=== PATIENT | female | born 1990 | race Two or more races ===

== ENCOUNTER 2017-09-06 07:20 | Inpatient (IN) | payer SELFPAY ==
--- NOTE | 2017-09-06 07:31 | ER Document Report ---
ED General - General Stated Complaint: POSSIBLE ACTIVE LABOR Time Seen by Provider: 09/06/17 07:30 Mode of Arrival: Wheelchair Information source: Patient Notes: 27 yr old female unknown gestational age of baby presents with concerns for labor. Pt was seen by triage nurse, unable ot understand what she is saying so YEHUDA was being obtained, I went out t othe waiting room myself, noted that patients water had broken and she was in active labor. Pt brought back to the trauma bay - HPI Onset: Just prior to arrival Onset/Duration: Sudden Quality of pain: Sharp Severity: Severe Pain Level: 5 Associated symptoms: Other Exacerbated by: Denies Relieved by: Denies Similar symptoms previously: No Recently seen / treated by doctor: No Past Medical History - Social History Smoking Status: Never Smoker Cigarette use (# per day): No Chew tobacco use (# tins/day): No Smoking Education Provided: No Family History: Reviewed & Not Pertinent Review of Systems - Review of Systems Notes: PHYSICAL EXAMINATION: GENERAL: Well-appearing, well-nourished and in significant distress HEAD: Atraumatic, normocephalic. EYES: Pupils equal round and reactive to light, extraocular movements intact, conjunctiva are normal. ENT: Nares patent, oropharynx clear without exudates. Moist mucous membranes. NECK: Normal range of motion, supple without lymphadenopathy LUNGS: Breath sounds clear to auscultation bilaterally and equal. No wheezes rales or rhonchi. HEART: Regular rate and rhythm without murmurs ABDOMEN: gravid abd Female : blood tinged fluid noted, pt began actively pushing and delivered baby Musculoskeletal: Normal range of motion, no pitting or edema. No cyanosis. NEUROLOGICAL: Cranial nerves grossly intact. Normal speech, normal gait. Normal sensory, motor exams PSYCH: Normal mood, normal affect. SKIN: Warm, Dry, normal turgor, no rashes or lesions noted. -: Yes ROS unobtainable due to patient's medical condition Course - Re-evaluation Re-evalutation: 09/06/17 07:41 Code OB was called. patient began actively delivering child, clamp was placed and cord was cut, a second clamp was then placed. Nasal and oral suction performed . initial 9 five-minute 10. Placenta was not delivered . Pt placed on monitor, fluids started, ob team took care , dr roach admits to her service Procedures - Additional Procedures vaginal delivery Time performed: 07:21 Additional Procedures: Other Notes: 09/06/17 07:46 Normal spontaneous vaginal delivery of live female infant, over intact perineum without epidural anesthesia. Suction performed. vaginal delivery blood loss is 100cc). Discharge - Discharge Clinical Impression: Vaginal delivery Condition: Stable Disposition: ADMITTED INPATIENT Admitting Provider: [facility] Admitted: Labor and Delivery
[2017-09-06] MEDS ORDERED: CEFAZOLIN 2 GM/D5W RTU 2 GM/50 ML RTUPB IV ONE (08:00)
[2017-09-06] MEDS ORDERED: NALBUPHINE HCL INJ 10 MG/1 ML AMPULE ONE (08:19)
[2017-09-06] MEDS ORDERED: CEFAZOLIN 2 GM/D5W RTU 2 GM/50 ML RTUPB IV PRN (08:31)
[2017-09-06] MEDS ORDERED: OXYTOCIN/NORMAL SALINE 20 UNIT/1,000 ML RTUINJ IV PRN (08:32)
[2017-09-06] MEDS ORDERED: PROMETHAZINE HCL 25 MG TABLET PO PRN (08:32)
[2017-09-06] MEDS ORDERED: PSEUDOEPHEDRINE HCL 30 MG TABLET PO PRN (08:32)
[2017-09-06] MEDS ORDERED: BENZOCAINE/MENTHOL AEROSOL SPRAY 56 ML TOP PRN (08:32)
[2017-09-06] MEDS ORDERED: MISOPROSTOL 0.2 MG TABLET PR PRN (08:32)
[2017-09-06] MEDS ORDERED: DIBUCAINE 1% OINTMENT 28 GM TP PRN (08:32)
[2017-09-06] MEDS ORDERED: DIPH/PERTUSS(ACELL)/TETANUS VAC/PF 0.5 ML SYR (>=10YO) IM PRN (08:32)
[2017-09-06] MEDS ORDERED: NA PHOS,M-B/NA PHOS,DI-BA (ADULT) 133 ML ENEMA PR PRN (08:32)
[2017-09-06] MEDS ORDERED: ACETAMINOPHEN WITH CODEINE #3 TABLET PO PRN ×2 (08:32)
[2017-09-06] MEDS ORDERED: MEASLES,MUMPS&RUBELLA VACC/PF 0.5 ML VIAL SUBCUT PRN (08:32)
[2017-09-06] MEDS ORDERED: GLYCERIN/WITCH HAZEL LEAF 1 EACH MED..PAD TP PRN (08:32)
[2017-09-06] MEDS ORDERED: ZOLPIDEM TARTRATE 5 MG TABLET PO PRN (08:32)
[2017-09-06] MEDS ORDERED: PROMETHAZINE HCL INJ 25 MG/1 ML VIAL IV PRN (08:32)
[2017-09-06] MEDS ORDERED: ACETAMINOPHEN 650 MG SUPP.RECT PR PRN (08:32)
[2017-09-06] MEDS ORDERED: PROMETHAZINE HCL 25 MG SUPP.RECT PR PRN (08:32)
[2017-09-06] MEDS ORDERED: MAGNESIUM HYDROXIDE SUSP 30 ML UDCUP PO PRN (08:32)
[2017-09-06] MEDS ORDERED: DIPHENHYDRAMINE HCL 25 MG CAPSULE PO PRN (08:32)
[2017-09-06] MEDS ORDERED: NALBUPHINE HCL INJ 10 MG/1 ML AMPULE INJ ONE (08:36)
[2017-09-06 09:18] LABS: ABSOLUTE MONOCYTES (AUTO) 0.4 10^3/uL (0.1-1.4); ABSOLUTE NEUT (AUTO) 14.5 10^3/uL (1.7-8.2); BASOPHILS % (AUTO) 0.2 % (0-2); HEMATOCRIT 24.8 % (36.0-47.0); HGB HCT DIFFERENCE -1.4; LYMPHOCYTES % (AUTO) 6.1 % (13-45); MEAN CORPUSCULAR HGB CONC 31.3 g/dL (32.0-36.0); MONOCYTES % (AUTO) 2.5 % (3-13); SEGMENTED NEUTROPHILS % (AUTO) 91.2 % (42-78); WHITE BLOOD COUNT 15.9 10^3/uL (4.0-10.5)
[2017-09-06 09:41] LABS: ANISOCYTOSIS 2+; HYPOCHROMASIA 1+; MICROCYTOSIS 3+; POLYCHROMASIA SLIGHT
[2017-09-06 09:43] LABS: MEAN CORPUSCULAR VOLUME 61 fl (80-97)
[2017-09-06 09:44] LABS: HEMOGLOBIN 7.8 g/dL (12.0-15.5)
--- NOTE | 2017-09-06 10:19 | Delivery Summary ---
Del Sum A-C Datetime Report Generated by CPN: 09/06/2017 10:18 DELIVERY PERSONNEL DELIVERY PERSONNEL: [id number] Delivery Doctor:: Dr Teixeira Labor and Delivery Nurse:: Janis Juan RN Nursery Nurse:: Cherelle Espinoza RN Bulldozer Mechanic/[id number] ARMOR CREWMAN: Aster Ron, ELECTROMECHANIC MATERNAL INFORMATION Delivery Anesthesia: None Medications After Delivery: Pitocin Bolus-Please Comment; Other-Please Comment Meds After Delivery Comment: cytotec 1000mcg pr Estimated Blood Loss (ml): 350 Maternal Complications: Precipitous Labor (<3hrs) Provider Comments: VFI delivered in ER during OB emergency prior to OB provider arrival. Delivery time 07. Apgars reported at 9/9. Pt arrived on floor with baby on maternal chest for NRP/skin to skin. Placenta not delivered and patient with increased ebl with atony. Placenta partially delivered easily but with continued atony and uterine exploration noted multiple pieces with good return of uterine tone and improved bleeding. FF at U and good hemostasis after repair. Repeat manual exploration of uterine revealed no evidence of retained products. Mother and baby stable upon provider leaving the room. LABOR SUMMARY No. Babies in Womb: 1 Attempted: No Labor Anesthesia: None LABOR INFORMATION Reason for Induction: Not Applicable Onset of Labor: 09/06/2017 12:01 Complete Dilatation: 09/06/2017 07:20 Oxytocin: N/A Group B Beta Strep: unknown Name of Antibiotic Given: Ancef Steroids Given: None Reason Steroids Not Administered: Not Applicable MEMBRANES Membranes Rupture Method: Spontaneous Rupture of Membranes: 09/06/2017 07:00 Length of Rupture (hr): 0.37 Amniotic Fluid Color: Moderate Meconium Amniotic Fluid Amount: Small Amniotic Fluid Odor: Normal STAGES OF LABOR Stage 1 hr: -4 Stage 1 min: -41 Stage 2 hr: 0 Stage 2 min: 2 Stage 3 hr: 0 Stage 3 min: 25 Total Time in Labor hr: -4 Total Time in Labor min: -14 VAGINAL DELIVERY Episiotomy: None Laceration #1: Perineal Laceration Extension #1: First Degree Laceration Repair: Yes Laceration Repair Note: 1st degree perineal laceration repaired in usual fahsion. Good hemostasis Sponge Count Correct: Yes Sharps Count Correct: Yes CSECTION DELIVERY Primary Indication: N/A Secondary Indication: N/A CSection Incidence: N/A Labor: N/A Elective: N/A CSection Incision: N/A BABY A INFORMATION Infant Delivery Date/Time: 09/06/2017 07:22 Method of Delivery: Vaginal Born in Route : No : N/A Forceps: N/A Vacuum Extraction: N/A Shoulder Dystocia : No PRESENTATION/POSITION BABY A Presentation: Cephalic Cephalic Presentation: Vertex Vertex Position: Occipital Posterior Breech Presentation: N/A PLACENTA INFORMATION BABY A Placenta Delivery Time : 09/06/2017 07:47 Placenta Method of Delivery: Manual Removal Placenta Status: Delivered SCORES BABY A Heart Rate 1 min: >100 bpm Resp Effort 1 min: Good Cry Reflex Irritability 1 min: Cough or Sneeze or Pulls Away Muscle Tone 1 min: Active Motion Color 1 min: Body Mosier, Extremities Blue Resuscitation Effort 1 min: Tactile Stimulation SCORE 1 MIN: 9 Heart Rate 5 min: >100 bpm Resp Effort 5 min: Good Cry Reflex Irritability 5 min: Cough or Sneeze or Pulls Away Muscle Tone 5 min: Active Motion Color 5 min: Body Mosier, Extremities Blue Resuscitation Effort 5 min: N/A SCORE 5 MIN: 9 INFANT INFORMATION BABY A Gestational Age at Delivery: unknown Outcome : Liveborn Condition : Stable Infant Sex: Female IDENTIFICATION BABY A Infant Verification Date/Time: 09/06/2017 08:08 ID Band Number: [id number] Mother's Name Verified: Yes Infant RN Verifying : B Baidy RN/T Nathaniel ELECTROMECHANIC WEIGHT/LENGTH BABY A Birthweight (gm): 4075 Weight (lb): 9 Weight (oz): 0 Length (in): 20.50 Infant Length (cm): 52.07 CORD INFORMATION BABY A No. Cord Vessels: 3 Nuchal Cord : N/A Cord Blood Taken: Yes-For Storage (Mom's Blood type +) ASSESSMENT BABY A Infant Complications: None Physical Findings at Delivery: Within Normal Limits Respirations: Appears Normal Skin to Skin: Yes Skin to Skin Time (min): 80 Riverboat Master/ALS Called : No Infant Care By: A Carroll RN Transferred To: Remains with Mother BABY B INFORMATION : N/A SIGNATURES Signature: with User ID: [email or web address]
[2017-09-06 10:21] LABS: ADD HIVPANEL? NO; HIV (1 AND 2) ANTIBODY NEGATIVE (NEGATIVE)
--- NOTE | 2017-09-06 11:02 | Admission Physical ---
Datetime Report Generated by CPN: 09/06/2017 11:01 CURRENT ADMISSION Chief Complaint: Uterine Contractions; Suspected Ruptured Membranes Indication for Induction: Not Applicable Indication for Induction: Term, Intrauterine ; Active Labor Admit Plan: Admit to Unit; Initiate Labor Protocol ALLERGIES Medication Allergies: No Medication Allergies: No Known Allergies (09/06/2017) Latex: No Latex Allergies Food Allergies: N/A Environmental Allergies: N/A OBSTETRICAL HISTORY : 3 Para: 2 Term: 2 : 0 SAB: 0 IAB: 0 Ectopic: 0 Livin Cesareans: 0 VBACs: 0 Multiple Births: 0 Gestational Diabetes: No Rh Sensitization: No Incompetent Cervix: No POP: No Infertility: No ART Treatment: No Uterine Anomaly: No IUGR: No Hx Previous C/S: No Macrosomia: No Hx Loss/Stillborn: No PIH: No Hx : No Placenta Previa/Abruption: No Depression/PP Depression: No PTL/PROM: No Post Hemorrhage: No Current Procedures: None Obstetrical History Comments: G1- G2- G3- current SEE RECORDS Alcohol: No Marijuana : No Cocaine: No Other Illicit Drugs: No Cigarettes: Never Smoker. [id number] MEDICAL HISTORY Diabetes: No Blood Transfusion: No Pulmonary Disease (Asthma, TB): No Breast Disease: No Hypertension: No Senior Planning Analyst Surgery: No Heart Disease: No Hosp/Surgery: No Autoimmune Disorder: No Anesthetic Complications: No Kidney Disease: No Abnormal Pap Smear: No Neuro/Epilepsy: No Psychiatric Disorders: No Other Medical Diseases: No Hepatitis/Liver Disease: No Significant Family History: No Varicosities/Phlebitis: No Trauma/Violence : No Thyroid Dysfunction: No INFECTIOUS HISTORY Gonorrhea: No Genital Herpes: No Chlamydia: No Tuberculosis: No Syphilis: No Hepatitis: No HIV/AIDS Exposure: No Rash or Viral Illness: No HPV: No PHYSICAL EXAM General: Normal HEENT: Normal Neurologic: Normal Thyroid: Deferred Heart: Normal Lungs: Normal Breast: Deferred Back: Normal Abdomen: Normal Genitourinary Exam: Normal Extremities: Normal DTRs: Normal Pelvic Type: Adequate Vital Signs: Reviewed; Within Normal Limits MEMBRANES Amniotic Fluid Color: moderate meconium FETUS A Monitoring: External US Admit Comment: 27yo at unknown but but term gestational age. No care. [employer] used for translation services. Uknown LMP and unknown ADITI. Denies DM/HTN. OB emergency called in ER upon pt arrival and baby delivered at 0722 prior to OB production line solderer arrival in ER. Placenta not delivered upon arrival to L_D. See delivery note. All care labs drawn. Unknown GBS. PLANS FOR LABOR AND DELIVERY Labor and Delivery: None Pain Management: None Feeding Preference: Formula Benefit of Breast Feed Discussed: Yes Circumcision: N/A INFORMED CONSENT Informed Consent Obtained: Vaginal Delivery; Risks, Benefits and Alternatives Discussed Signature: with User ID: [email or web address]
[2017-09-06] MEDS: IBUPROFEN 800 MG TABLET PO SCH ×2 (14:42→21:43)
[2017-09-06] MEDS: FERROUS SULFATE 325 MG TABLET PO SCH ×2 (18:25→18:31)
[2017-09-06] MEDS: FAMOTIDINE 20 MG TABLET PO SCH ×2 (18:25→21:44)
[2017-09-06] MEDS: SENNOSIDES/DOCUSATE 8.6-50 MG 1 EACH TABLET PO SCH (18:25)
[2017-09-06] MEDS: DOCUSATE SODIUM 100 MG CAPSULE PO SCH ×2 (18:25→18:31)
[2017-09-06] MEDS: PRENATAL VITAMIN W DHA CAPSULE PO SCH (18:25)
[2017-09-07] MEDS: IBUPROFEN 800 MG TABLET PO SCH ×3 (06:11→22:48)
[2017-09-07 09:02] LABS: HEMATOCRIT 22.4 % (36.0-47.0); HGB HCT DIFFERENCE -1.4; MEAN CORPUSCULAR HEMOGLOBIN 18.8 pg (27.0-33.4); MEAN CORPUSCULAR HGB CONC 31.1 g/dL (32.0-36.0); MEAN CORPUSCULAR VOLUME 60 fl (80-97); RED BLOOD COUNT 3.72 10^6/uL (3.72-5.28); RED CELL DISTRIBUTION WIDTH 20.4 % (11.5-14.0); WHITE BLOOD COUNT 11.8 10^3/uL (4.0-10.5)
--- NOTE | 2017-09-07 09:49 | PDOC PROGRESS REPORT ---
Subjective-OB Subjective: Post Delivery Day: 27 year old. Denies any needs at this time [employer] used to translate. pt denies MONTANO/ringing in ears/lightheadedness/presyncope/dizziness. reports tolerating diet well, diminishing bleeding, pain controlled. does not plan to breastfeed. states other children are with her sister and she plans to stay in town after discharge from hospital. reports no problems during her and good family support. accompanied by brother. denies complaints. Physical Exam (OB) Vital Signs: Temp Pulse Resp BP Pulse Ox 97.6 F 66 16 104/57 L 100 09/07/17 08:07 09/07/17 08:07 09/07/17 08:07 09/07/17 08:07 09/07/17 08:07 Intake & Output 09/06/17 09/07/17 09/08/17 06:59 06:59 06:59 Intake Total 600 Balance 600 - Abdomen Description: Soft, Round Hernia Present: No Fundal Description: Firm, Midline Fundal Height: u/u - u/2 - Abdominal Tenderness: Nontender - Extremities Lower extremities: Fiorella's sign - neg Calf: Nontender Objective-Diagnostic Laboratory: 09/07/17 07:46 09/06/17 09/06/17 09/07/17 08:44 08:44 07:46 WBC 15.9 H 11.8 H RBC 4.10 3.72 Hgb 7.8 L 7.0 L Hct 24.8 L 22.4 L MCV 61 L 60 L MCH 19.0 L 18.8 L MCHC 31.3 L 31.1 L RDW 20.0 H 20.4 H Plt Count 265 240 Seg Neutrophils % 91.2 H Lymphocytes % 6.1 L Monocytes % 2.5 L Eosinophils % 0.0 Basophils % 0.2 Absolute Neutrophils 14.5 H Absolute Lymphocytes 1.0 Absolute Monocytes 0.4 Absolute Eosinophils 0.0 Absolute Basophils 0.0 Blood Type A POSITIVE Antibody Screen NEGATIVE Assessment and Plan(PN) - Assessment and Plan (1) Meconium in amniotic fluid affecting management of mother Is this a current diagnosis for this admission?: Yes (2) Poor patient attendance of care Is this a current diagnosis for this admission?: Yes (3) Vaginal delivery Is this a current diagnosis for this admission?: Yes - Time Spent with Patient Time with patient: 15-25 minutes Medications reviewed and adjusted accordingly: Yes - Disposition Anticipated Discharge: Home Within: within 24 hours Disposition: repeat CBC in AM. plan to discharge to family care tomorrow if stable.
[2017-09-07] MEDS: PRENATAL VITAMIN W DHA CAPSULE PO SCH (10:35)
[2017-09-07] MEDS: DOCUSATE SODIUM 100 MG CAPSULE PO SCH ×2 (10:36→18:02)
[2017-09-07] MEDS: FERROUS SULFATE 325 MG TABLET PO SCH ×2 (10:36→18:02)
[2017-09-07] MEDS: SENNOSIDES/DOCUSATE 8.6-50 MG 1 EACH TABLET PO SCH (10:36)
[2017-09-07] MEDS: FAMOTIDINE 20 MG TABLET PO SCH ×2 (10:36→22:49)
[2017-09-07] MEDS ORDERED: INFLUENZA ADLT QUAD (36MOS+) 2017-18 VAC 0.5 ML SYR IM PRN (18:08)
[2017-09-08] MEDS: IBUPROFEN 800 MG TABLET PO SCH (05:36)
[2017-09-08 08:27] LABS: ABSOLUTE BASOPHILS # (AUTO) 0.1 10^3/uL (0.0-0.2); ABSOLUTE EOSINOPHILS # (AUTO) 0.1 10^3/uL (0.0-0.6); ABSOLUTE LYMPHOCYTES (AUTO) 3.1 10^3/uL (0.5-4.7); ABSOLUTE MONOCYTES (AUTO) 0.6 10^3/uL (0.1-1.4); ABSOLUTE NEUT (AUTO) 10.7 10^3/uL (1.7-8.2); BASOPHILS % (AUTO) 0.4 % (0-2); EOSINOPHILS % (AUTO) 0.8 % (0-6); HEMATOCRIT 23.5 % (36.0-47.0); HGB HCT DIFFERENCE -1.9; LYMPHOCYTES % (AUTO) 21.3 % (13-45); MEAN CORPUSCULAR HEMOGLOBIN 18.8 pg (27.0-33.4); MEAN CORPUSCULAR HGB CONC 30.5 g/dL (32.0-36.0); MEAN CORPUSCULAR VOLUME 62 fl (80-97); MONOCYTES % (AUTO) 4.3 % (3-13); RED BLOOD COUNT 3.82 10^6/uL (3.72-5.28); RED CELL DISTRIBUTION WIDTH 20.5 % (11.5-14.0); SEGMENTED NEUTROPHILS % (AUTO) 73.2 % (42-78); WHITE BLOOD COUNT 14.6 10^3/uL (4.0-10.5)
[2017-09-08 08:36] VITALS: BP 109/56
[2017-09-08 08:44] LABS: HEMOGLOBIN 7.2 g/dL (12.0-15.5)
[2017-09-08 08:55] LABS: ANISOCYTOSIS 2+; MICROCYTOSIS 3+; OVALOCYTES SLIGHT; POIKILOCYTOSIS SLIGHT
--- NOTE | 2017-09-08 09:10 | PDOC DISCHARGE SUMMARY ---
Final Diagnosis Discharge Date: 09/08/17 - Final Diagnosis (1) Meconium in amniotic fluid affecting management of mother Is this a current diagnosis for this admission?: Yes (2) Poor patient attendance of care Is this a current diagnosis for this admission?: Yes (3) Vaginal delivery Is this a current diagnosis for this admission?: Yes (4) Anemia Is this a current diagnosis for this admission?: Yes Discharge Data - Discharge Medication Home Medications: Docusate Sodium [Colace 100 mg Capsule] 100 mg PO BID #60 capsule 09/08/17 Ferrous Sulfate [Feosol 325 mg Tablet] 325 mg PO BID #60 tablet 09/08/17 Ibuprofen [Motrin 800 mg Tablet] 800 mg PO Q8 #60 tablet 09/08/17 Gestational Age: ? [id number] Reason(s) for Admission: Onset of Labor Admission Note: unknown Procedures: NST Intrapartum Procedure(s): Spontaneous Vaginal Delivery Complication(s): Laceration-Labial Laceration-Degree: 1st - Data Baby 1 Female at 1 minute: 9 at 5 minutes: 9 Weight: 4075 kg Home with Mother: Yes Complications: No - Diagnosis Test Laboratory: Temp Pulse Resp BP Pulse Ox 97.9 F 82 16 109/56 L 99 09/08/17 08:35 09/08/17 08:35 09/08/17 08:35 09/08/17 08:35 09/08/17 08:35 09/06/17 09/07/17 09/08/17 08:44 07:46 07:37 RBC 4.10 3.72 3.82 Hgb 7.8 L 7.0 L 7.2 L Hct 24.8 L 22.4 L 23.5 L - Discharge information/Instructions Discharge Activity: Activity As Tolerated, Pelvic Rest, No tub bath Discharge Diet: Regular Disposition: HOME, SELF-CARE Follow [facility]: [facility] in: 4, Weeks
[2017-09-08] MEDS: DOCUSATE SODIUM 100 MG CAPSULE PO SCH (11:00)
[2017-09-08] MEDS: FAMOTIDINE 20 MG TABLET PO SCH (11:01)
[2017-09-08] MEDS: PRENATAL VITAMIN W DHA CAPSULE PO SCH (11:01)
[2017-09-08] MEDS: FERROUS SULFATE 325 MG TABLET PO SCH (11:01)
[2017-09-08] MEDS: SENNOSIDES/DOCUSATE 8.6-50 MG 1 EACH TABLET PO SCH (11:01)
[2017-09-09 04:37] LABS: HEPATITIS C VIRUS AB <0.1 s/co ratio (0.0-0.9)
== END 2017-09-08 12:09 | disposition home or self-care (01) | DRG 767 ==
LOC: EDSTATUS 07:37 → LC 07:44 → UNDOADMIN 07:50 → LR 07:50 → EDSTATUS 08:16 → LC 09:08 → LR 09:10 → 2S 10:30
PROVIDERS: ADMIT Student in an Organized Health Care Education/Training Program; ATTEND Student in an Organized Health Care Education/Training Program
PROC: 10E0XZZ Delivery of Products of Conception, External Approach (ICD-10-PCS; principal; 2017-09-06)
PROC: 10D17Z9 Manual Extraction of Products of Conception, Retained, Via Natural or Artificial Opening (ICD-10-PCS; 2017-09-06)
PROC: 0HQ9XZZ Repair Perineum Skin, External Approach (ICD-10-PCS; 2017-09-06)
PROC: 3E0234Z Introduction of Serum, Toxoid and Vaccine into Muscle, Percutaneous Approach (ICD-10-PCS; 2017-09-08)
PROC: 3E0234Z Introduction of Serum, Toxoid and Vaccine into Muscle, Percutaneous Approach (ICD-10-PCS; 2017-09-08)
DX: O62.3 Precipitate labor (principal); O72.1 Other immediate postpartum hemorrhage; O77.0 Labor and delivery complicated by meconium in amniotic fluid; O70.0 First degree perineal laceration during delivery; O73.1 Retained portions of placenta and membranes, without hemorrhage; Z3A.00 Weeks of gestation of pregnancy not specified; Z37.0 Single live birth; Z23 Encounter for immunization
CPT/HCPCS: 36415; 85025; 85027; 86592; 86701; 86762; 86803; 86804; 86850; 86900; 86901; 87081; 87340; 87491; 87591; 90686; 90715; 99284; J0690; J2300; J3490